=== PATIENT | female | born 1950 ===

== ENCOUNTER 2022-04-30 08:00 | Outpatient (CLI) | payer MEDICARE ==
--- NOTE | 2022-04-30 15:23 | XRAY Report ---
PROCEDURE: Chest 2 View X-Ray INDICATIONS: COUGH TECHNIQUE: 2 views of the chest were acquired. COMPARISON: None. FINDINGS: Surgical changes and devices: None. Lungs and pleura: No pleural effusions or pneumothorax. Lungs are clear. Mediastinum: Mediastinal contours are normal. Heart size is normal. Bones and chest wall: No suspicious bony abnormalities. Soft tissues appear unremarkable. IMPRESSION: No acute cardiopulmonary disease process. Reviewed by: Codi Friedman MD, PhD on 04/30/2022 3:22 PM PST Approved by: Codi Friedman MD, PhD on 04/30/2022 3:22 PM [facility] Station ID: [id number]
== END 2022-04-30 23:59 | disposition home or self-care (01) ==
LOC: DI.S 08:00
PROVIDERS: ATTEND Physician Assistant Medical
DX: R05.9 Cough, unspecified (principal); R09.89 Other specified symptoms and signs involving the circulatory and respiratory systems

== ENCOUNTER 2023-08-20 08:00 | Outpatient (CLI) | payer MEDICARE | END 2023-08-20 23:59 | disposition home or self-care (01) | LOC: LAB.N 08:00 | PROVIDERS: ATTEND Registered Nurse | DX: R30.0 Dysuria (principal); R82.79 Other abnormal findings on microbiological examination of urine; R81 Glycosuria | CPT/HCPCS: 87086 ==

== ENCOUNTER 2023-08-25 08:00 | Outpatient (CLI) | payer MEDICARE | END 2023-08-25 23:59 | disposition home or self-care (01) | LOC: LAB.N 08:00 | PROVIDERS: ATTEND Registered Nurse | DX: R30.0 Dysuria (principal); R82.79 Other abnormal findings on microbiological examination of urine; R81 Glycosuria | CPT/HCPCS: 87086 ==

== ENCOUNTER 2023-11-06 08:00 | Outpatient (CLI) | payer MEDICARE | END 2023-11-06 23:59 | disposition home or self-care (01) | LOC: LAB.S 08:00 | PROVIDERS: ATTEND Emergency Medicine | DX: E11.65 Type 2 diabetes mellitus with hyperglycemia (principal); R81 Glycosuria | CPT/HCPCS: 82962 ==